=== PATIENT | female | born 1980 | race African-American/Black ===

== ENCOUNTER 2020-11-29 17:19 | Observation (INO) ==
[2020-11-29] MEDS ORDERED: MEPERIDINE 50 MG/1 ML VIAL IV PRN (18:21)
[2020-11-29] MEDS ORDERED: ONDANSETRON 4 MG/2 ML VIAL IV PRN (18:21)
[2020-11-29] MEDS ORDERED: TERBUTALINE 1 MG/1 ML VIAL SUBCUT ONE ×2 (18:21→20:34)
[2020-11-29] MEDS: LACTATED RINGERS 1,000 ML IV SCH ×2 (18:35→20:49)
== END 2020-11-30 10:00 | disposition home or self-care (01) ==
LOC: N.LD
PROVIDERS: ADMIT Obstetrics & Gynecology; ATTEND Obstetrics & Gynecology

== ENCOUNTER 2020-12-02 22:38 | Inpatient (IN) ==
[2020-12-02 23:05] LABS: Bacteria,Urine Occasional /HPF (Few); Bilirubin,Urine Negative (Negative); Blood, Urine Negative (Negative); Glucose,Urine (UA) Negative (Negative); Ketones,Urine Negative (Negative); Mucus,Urine Moderate /LPF (Occasional); Nitrite,Urine Negative (Negative); Protein,Urine Negative; RBC,Urine 4 /HPF (0-4); Squamous Epithelial Cell,Urine Few /HPF (0-10); Urine Appearance CLEAR (Clear); Urine Color Yellow (Yellow); Urine Specific Gravity 1.028 (1.001-1.035); Urine Urobilinogen < 2.0 EU/DL (0.2-1.0); WBC,Urine 3 /HPF (0-6)
[2020-12-03] MEDS ORDERED: CITRIC ACID/SODIUM CITRATE 30 ML UDCUP PO ONE (00:01)
[2020-12-03] MEDS ORDERED: CLINDAMYCIN INJ 900 MG in PREMIX 1 EACH IV ONE (00:01)
[2020-12-03] MEDS ORDERED: FAMOTIDINE 20 MG/2 ML VIAL IV ONE ×2 (00:01→06:03)
[2020-12-03] MEDS ORDERED: INFLUENZA VIRUS VACCINE 0.5 ML SYRINGE IM ONE (00:06)
[2020-12-03] MEDS ORDERED: MEPERIDINE 50 MG/1 ML VIAL IV PRN (00:16)
[2020-12-03] MEDS ORDERED: ONDANSETRON 4 MG/2 ML VIAL IV PRN ×2 (00:16→08:32)
[2020-12-03] MEDS: LACTATED RINGERS 1,000 ML IV SCH ×2 (00:32→02:32)
[2020-12-03 01:17] LABS: Alanine Aminotransferase 16 U/L (13-56); Albumin 2.7 G/DL (3.4-5.0); Alkaline Phosphatase 112 U/L (45-117); Aspartate Amino Transferase 19 U/L (0-37); Bilirubin,Total < 0.39 MG/DL (0.2-1.0); Blood Urea Nitrogen 8 MG/DL (7-18); Calcium 9.9 MG/DL (8.5-10.1); Carbon Dioxide 21 MMOL/L (21-32); Estimated Glom Filtration Rate 171 ML/MIN; Glucose 86 MG/DL (74-106); Osmolality,Calculated 271.7 MOS/KG (273-304); Sodium 138 MMOL/L (136-145)
[2020-12-03] MEDS ORDERED: TERBUTALINE 1 MG/1 ML VIAL SUBCUT PRN (01:47)
[2020-12-03 02:05] LABS: Basophils % 0.5 % (0.0-0.8); Eosinophils # 0.1 10*3/uL (0.0-0.87); Eosinophils % 0.9 % (0.00-10.9); Hematocrit 34.8 VOL% (35.7-47.0); Immature Granulocytes % 0.8 %; Immature Granulocytes Absolute 0.07 #; Lymphocytes # 1.8 10*3/uL (1.4-4.0); Lymphocytes % 20.6 % (21.3-54.2); Mean Corpuscular HGB Conc 31.6 GM/DL (32-36); Mean Corpuscular Volume 84.9 FL (87-102); Mean Platelet Volume 12.6 FL (9.6-12.0); Monocytes % 10.1 % (1.7-12.7); Neutrophils % 67.1 % (38.7-73.9); Platelet Count 257 T/CUMM (130-400); Red Cell Distribution Width 14.4 % (9.3-17.3); White Blood Count 8.7 T/CUMM (4-12)
[2020-12-03] MEDS ORDERED: BUTORPHANOL 2 MG/ML VIAL IV PRN (03:42)
[2020-12-03] MEDS ORDERED: BUTORPHANOL 2 MG/ML VIAL ONE (03:44)
[2020-12-03] MEDS ORDERED: OXYTOCIN/LR 0 UNIT/0 ML BAG IV ONE (05:55)
[2020-12-03] MEDS ORDERED: OXYTOCIN 10 UNIT/ML VIAL ONE (05:56)
[2020-12-03] MEDS ORDERED: miSOPROStoL 200 MCG TABLET ONE (06:04)
[2020-12-03] MEDS ORDERED: TRANEXAMIC ACID 1,000 MG/10 ML VIAL ONE ×2 (06:05→06:08)
[2020-12-03] MEDS ORDERED: METHYLERGONOVINE 0.2 MG/1 ML AMP ONE (06:05)
[2020-12-03] MEDS ORDERED: CARBOPROST TROMETHAMINE 250 MCG/ML AMP IM ONE (06:05)
[2020-12-03] MEDS ORDERED: SODIUM CHLORIDE 0.9% 100 ML IV ONE (06:10)
[2020-12-03] MEDS ORDERED: MORPHINE 10 MG/10 ML VIAL ONE (06:16)
[2020-12-03] MEDS ORDERED: OXYTOCIN/LR 30 UNIT/1,000 ML BAG IV ONE (06:30)
[2020-12-03] MEDS ORDERED: OXYTOCIN 10 UNIT/ML VIAL IM ONE (06:30)
[2020-12-03] MEDS ORDERED: ONDANSETRON 4 MG/2 ML VIAL ONE (06:34)
[2020-12-03] MEDS ORDERED: BUPIVACAINE SPINAL 0.75% 2 ML AMP SPINAL ONE (06:34)
[2020-12-03] MEDS ORDERED: PHENYLEPHRINE 1 MG/10 ML SYRINGE IV ONE (06:34)
[2020-12-03 08:12] LABS: Bilirubin,Urine Negative (Negative); Blood, Urine Moderate mg/dL (Negative); Glucose,Urine (UA) Negative (Negative); Ketones,Urine 20 mg/dL (Negative); Mucus,Urine Occasional /LPF (Occasional); Nitrite,Urine Negative (Negative); Protein,Urine Negative; RBC,Urine 1 /HPF (0-4); Squamous Epithelial Cell,Urine Occasional /HPF (0-10); Urine Appearance CLEAR (Clear); Urine Color Yellow (Yellow); Urine Specific Gravity 1.011 (1.001-1.035); Urine Urobilinogen < 2.0 EU/DL (0.2-1.0); WBC,Urine <1 /HPF (0-6)
[2020-12-03] MEDS ORDERED: ACETAMINOPHEN 1,000 MG/100 ML VIAL IV ONE (08:15)
[2020-12-03 08:17] LABS: Cord Venous Blood HCO3 22.4 MMOL/L; Cord Venous Blood PCO2 48.5 MMHG; Cord Venous Blood PO2 27.9
[2020-12-03 08:21] LABS: Cord Arterial Blood HCO3 21.5 MMOL/L
[2020-12-03] MEDS ORDERED: LACTATED RINGERS 1,000 ML IV ONE (08:28)
[2020-12-03] MEDS ORDERED: OXYTOCIN/LR 20 UNIT/1,000 ML BAG IV ONE (08:32)
[2020-12-03] MEDS ORDERED: ACETAMINOPHEN 325 MG TABLET PO PRN (08:32)
[2020-12-03] MEDS ORDERED: RHO(D) IMMUNE GLOBULIN 300 MCG SYRINGE IM ONE (08:32)
[2020-12-03] MEDS ORDERED: HYDROmorphone 2 MG/1 ML VIAL IV PRN (09:00)
[2020-12-03] MEDS ORDERED: LACTATED RINGERS 1,000 ML IV SCH (09:00)
[2020-12-03] MEDS ORDERED: hydrOXYzine HCL 25 MG/1 ML VIAL IM PRN (09:00)
[2020-12-03] MEDS ORDERED: diphenhydrAMINE 50 MG/1 ML VIAL IV PRN (09:00)
[2020-12-03] MEDS ORDERED: NIFEdipine 10 MG CAPSULE PO ONE ×2 (09:53→11:30)
[2020-12-03] MEDS: ceFAZolin 1,000 MG in SYRINGE 1 EACH IV SCH ×2 (15:52→23:10)
[2020-12-03] MEDS: BUTALBITAL/ACETAMIN/CAFFEINE 50-325-40 MG TABLET PO SCH ×2 (17:48→23:11)
[2020-12-03] MEDS: DOCUSATE SODIUM 100 MG CAPSULE PO SCH (23:11)
[2020-12-04] MEDS: IBUPROFEN 800 MG TABLET PO PRN ×2 (02:02→19:36)
[2020-12-04 04:49] LABS: Basophils # 0.1 10*3/uL (0.0-0.2); Basophils % 0.4 % (0.0-0.8); Eosinophils # 0.1 10*3/uL (0.0-0.87); Eosinophils % 0.6 % (0.00-10.9); Hematocrit 35.6 VOL% (35.7-47.0); Hemoglobin 11.4 GM/DL (12.0-16.0); Immature Granulocytes % 0.6 %; Immature Granulocytes Absolute 0.07 #; Lymphocytes # 1.6 10*3/uL (1.4-4.0); Lymphocytes % 13.1 % (21.3-54.2); Mean Platelet Volume 11.6 FL (9.6-12.0); Neutrophils % 76.3 % (38.7-73.9); Platelet Count 253 T/CUMM (130-400); Red Blood Count 4.24 MC/CUMM (3.8-5.5); Red Cell Distribution Width 14.2 % (9.3-17.3); White Blood Count 12.3 T/CUMM (4-12)
[2020-12-04] MEDS: BUTALBITAL/ACETAMIN/CAFFEINE 50-325-40 MG TABLET PO SCH ×2 (05:12→13:26)
[2020-12-04] MEDS: DOCUSATE SODIUM 100 MG CAPSULE PO SCH ×3 (09:31→19:36)
[2020-12-04] MEDS: MULTIVITAMIN (PRENATAL) TABLET PO SCH ×2 (09:31→09:34)
[2020-12-04] MEDS: MAGNESIUM HYDROXIDE SUSP 30 ML UDCUP PO PRN (19:36)
[2020-12-04] MEDS: METOCLOPRAMIDE 10 MG TABLET PO PRN (19:36)
[2020-12-04] MEDS: BISACODYL 10 MG SUPP RECTAL PRN (20:30)
[2020-12-05] MEDS: METOCLOPRAMIDE 10 MG TABLET PO PRN ×3 (02:17→15:45)
[2020-12-05] MEDS: IBUPROFEN 800 MG TABLET PO PRN ×2 (05:58→15:45)
[2020-12-05] MEDS ORDERED: MAGNESIUM CITRATE 300 ML BOTTLE PO ONE (07:14)
[2020-12-05] MEDS: SIMETHICONE CHEW 80 MG TABLET PO PRN ×3 (07:51→23:45)
[2020-12-05] MEDS: MAGNESIUM HYDROXIDE SUSP 30 ML UDCUP PO PRN (07:51)
[2020-12-05] MEDS: DOCUSATE SODIUM 100 MG CAPSULE PO SCH ×2 (07:52→21:08)
[2020-12-05] MEDS: MULTIVITAMIN (PRENATAL) TABLET PO SCH (07:52)
[2020-12-05] MEDS: POTASSIUM CHLORIDE 20 MEQ TABLET PO SCH (21:07)
[2020-12-05] MEDS: BISACODYL 10 MG SUPP RECTAL PRN (23:59)
[2020-12-06] MEDS: MAGNESIUM HYDROXIDE SUSP 30 ML UDCUP PO PRN ×3 (02:06→11:39)
[2020-12-06] MEDS ORDERED: SODIUM PHOSPHATE ENEMA 133 ML BOTTLE RECTAL PRN (03:35)
[2020-12-06] MEDS: METOCLOPRAMIDE 10 MG TABLET PO PRN (03:46)
[2020-12-06] MEDS ORDERED: WITCH HAZEL PADS 100/JAR TOP PRN (07:41)
[2020-12-06] MEDS ORDERED: HYDROCORTISONE 2.5% RECTAL CREAM 30 GM TUBE TOP PRN (07:42)
[2020-12-06] MEDS: POTASSIUM CHLORIDE 20 MEQ TABLET PO SCH (09:04)
[2020-12-06] MEDS: DOCUSATE SODIUM 100 MG CAPSULE PO SCH (09:04)
[2020-12-06] MEDS: MULTIVITAMIN (PRENATAL) TABLET PO SCH (09:04)
[2020-12-06] MEDS: IBUPROFEN 800 MG TABLET PO PRN (09:22)
[2020-12-06 11:46] VITALS: BP 128/85
[2020-12-06] MEDS ORDERED: METOCLOPRAMIDE 10 MG TABLET PO SCH (12:00)
[2020-12-06] MEDS ORDERED: DIPH/TET/ACEL PERT BOOSTER VACCINE 0.5 ML VIAL IM ONE (12:49)
== END 2020-12-06 13:45 | disposition home or self-care (01) | DRG 785 ==
LOC: N.LDOUT 22:38 → N.LD 22:39 → N.OB 12-05 08:39
PROVIDERS: ADMIT Obstetrics & Gynecology; ATTEND Obstetrics & Gynecology